=== PATIENT | female | born 1970 | race Caucasian/White ===

== ENCOUNTER 2025-02-04 15:14 | Emergency (ER) | payer OTHER ==
[~2025-02-04] VITALS: Ht 165.1 cm; Wt 65.0 kg
[2025-02-04 15:20] VITALS: O2SAT 100
[2025-02-04] MEDS ORDERED: HYDR-4001 MT (16:57)
[2025-02-04] MEDS: HYDROCODONE/ACETAMINOPHEN 5/325MG TABLET PO NR (17:00)
[2025-02-04 17:14] VITALS: BP 114/73; PULSE 67; RESP 16; TEMP 36.8; O2SAT 99
== END 2025-02-04 17:15 | disposition home or self-care (01) ==
LOC: ER 15:14
DX: S16.1XXA Strain of muscle, fascia and tendon at neck level, initial encounter (principal); S60.212A Contusion of left wrist, initial encounter; I10 Essential (primary) hypertension; J45.909 Unspecified asthma, uncomplicated; Z88.0 Allergy status to penicillin; Z88.2 Allergy status to sulfonamides; Z88.6 Allergy status to analgesic agent; V49.40XA Driver injured in collision with unspecified motor vehicles in traffic accident, initial encounter; Y93.89 Activity, other specified; Y92.89 Other specified places as the place of occurrence of the external cause; Y99.8 Other external cause status
CPT/HCPCS: 99284; 70450; 81025; 73090; 73110; 72125; A6449